=== PATIENT | male | born 1955 ===

== ENCOUNTER 2022-11-30 14:35 | Inpatient (IN) | payer OTHER ==
[~2022-11-30] VITALS: Ht 167.6 cm; Wt 72.6 kg
[2022-12-01] MEDS ORDERED: TAMS0.4C PO (13:05)
[2022-12-01] MEDS ORDERED: VASOTEC10 MG PO (13:05)
[2022-12-01] MEDS ORDERED: PROTONIX40 MG PO (13:06)
[2022-12-01] MEDS ORDERED: ZOCOR40 MG PO (13:06)
[2022-12-06] MEDS ORDERED: MEDROLPACK PO (09:59)
[2022-12-06] MEDS ORDERED: PERCOCET 5-3251 EACH PO (09:59)
[2022-12-06] MEDS ORDERED: AMOX-CLAV 875-1 EACH PO (10:00)
[2022-12-06] MEDS ORDERED: COLACE100 MG PO (10:00)
[2022-12-06] MEDS ORDERED: NEURONTIN800 MG PO (10:00)
== END 2022-12-08 12:40 | DRG 455 ==
LOC: SURH 12-06 05:53 → O/R 12-06 05:53 → SURG 12-06 10:45 → SURH 12-06 13:55
PROVIDERS: ADMIT Orthopaedic Surgery Orthopaedic Surgery of the Spine; ATTEND Orthopaedic Surgery Orthopaedic Surgery of the Spine
PROC: 0SG0071 Fusion of Lumbar Vertebral Joint with Autologous Tissue Substitute, Posterior Approach, Posterior Column, Open Approach (ICD-10-PCS; 2022-12-06)
PROC: 0ST20ZZ Resection of Lumbar Vertebral Disc, Open Approach (ICD-10-PCS; 2022-12-06)
PROC: 0QB30ZZ Excision of Left Pelvic Bone, Open Approach (ICD-10-PCS; 2022-12-06)
PROC: 07DR0ZZ Extraction of Iliac Bone Marrow, Open Approach (ICD-10-PCS; 2022-12-06)
PROC: 4A12X4Z Monitoring of Cardiac Electrical Activity, External Approach (ICD-10-PCS; 2022-12-06)
PROC: XRGB0R7 Fusion of Lumbar Vertebral Joint using Custom-Made Anatomically Designed Interbody Fusion Device, Open Approach, New Technology Group 7 (ICD-10-PCS; principal; 2022-12-06 10:45)
DX: M48.062 Spinal stenosis, lumbar region with neurogenic claudication (principal); M51.36 Other intervertebral disc degeneration, lumbar region; I10 Essential (primary) hypertension; E78.5 Hyperlipidemia, unspecified; R26.89 Other abnormalities of gait and mobility